=== PATIENT | female | born 1965 | race Caucasian/White ===

== ENCOUNTER 2016-07-29 09:39 | Day surgery (SDC) | payer OTHER ==
[2016-07-29] VITALS (17 sets, daily range): BP systolic 110–179; BP diastolic 55–84; PULSE 68–98; RESP 12–18; Ht 156.2 cm; Wt 75.5 kg
[~2016-07-29] VITALS: Ht 156.2 cm; Wt 75.5 kg
[~2016-07-29 09:39] MED LIST: LIDOCAINE 2% (SDV) 5 ML INJ ONE
[2016-07-29] MEDS ORDERED: CEFAZOLIN 2 GM/50 ML (PMX) 50 ML IVPB SCH (10:00)
[2016-07-29] MEDS ORDERED: SOD CHLORIDE 0.9% 1,000 ML IV SCH (10:00)
--- NOTE | 2016-07-29 10:37 | RADRPT ---
PROCEDURE: Chest Radiograph. CLINICAL INDICATION: Preop. TECHNIQUE: Single frontal chest radiograph. COMPARISON: None available FINDINGS: The patient is moderately rotated. The cardiomediastinal silhouette is grossly within normal limits . No infiltrate or effusion is seen. The bones are intact. IMPRESSION: 1. No evidence of acute cardiopulmonary disease. RPTAT: AA .Amos Hernandez MD, MD Date Time Electronically viewed and signed by .Amos Hernandez MD, MD on 07/29/2016 10:37 .B/
[2016-07-29 11:24] LABS: ADD SCAN DIFF NO
[2016-07-29 11:31] LABS: BASOPHILS % 0.3 % (0.0-2.0); EOSINOPHILS # 0.1 10^3/ul (0.0-0.5); EOSINOPHILS % 1.2 % (0.0-7.0); HEMATOCRIT 40.2 % (37.0-47.0); HEMOGLOBIN 13.2 g/dl (12.0-16.0); LYMPHOCYTES # 2.1 10^3/ul (0.8-2.9); LYMPHOCYTES % 36.5 % (15.0-51.0); MEAN CORPUSCULAR HEMOGLOBIN 29.6 pg (29.0-33.0); MEAN CORPUSCULAR HGB CONC 32.8 g/dl (32.0-37.0); MEAN CORPUSCULAR VOLUME 90.1 fl (82.0-101.0); MEAN PLATELET VOLUME 10.1 fl (7.4-10.4); MONOCYTE # 0.4 10^3/ul (0.3-0.9); MONOCYTES % 7.2 % (0.0-11.0); NEUTROPHIL # 3.2 10^3/ul (1.6-7.5); NEUTROPHILS % 54.6 % (39.0-77.0); PLATELET COUNT 229 10^3/UL (140-415); RED BLOOD COUNT 4.46 10^6/ul (4.20-5.40); RED CELL DISTRIBUTION WIDTH 12.8 % (11.5-14.5); WHITE BLOOD COUNT 5.9 10^3/ul (4.8-10.8)
--- NOTE | 2016-07-29 11:33 | RADRPT ---
Vent Rate: 63 bpm RR Interval: 0 msec IN Interval: 164 msec QRS Duration: 86 msec QT Interval: 422 msec QTC Interval: 431 msec P-R-T Mars: 57 - 91 - 73 degrees Normal sinus rhythm Rightward axis Borderline ECG Electronically Signed By: Noel Vance [id number]
[2016-07-29 11:46] LABS: ALBUMIN 4.2 g/dl (3.3-4.9); INR 1.02; PROTIME 13.4 Sec (12.2-14.2)
[2016-07-29 11:47] LABS: PARTIAL THROMBOPLASTIN TIME 30.9 Sec (25.0-35.0)
[2016-07-29 11:49] LABS: ALBUMIN/GLOBULIN RATIO 1.1; BILIRUBIN,INDIRECT 0.3 mg/dl (0-1.1); BILIRUBIN,TOTAL 0.3 mg/dl (0.2-1.3)
[2016-07-29 12:05] LABS: CALCIUM 9.4 mg/dl (8.4-10.2); CREATININE 0.63 mg/dl (0.44-1.00); POTASSIUM 4.2 mmol/L (3.5-5.1)
[2016-07-29] MEDS ORDERED: GLYCOPYRROLATE 0.4 MG INJ ONE (13:02)
[2016-07-29] MEDS ORDERED: DEXAMETHASONE 4 MG/ML 1 ML INJ ONE (13:02)
[2016-07-29] MEDS ORDERED: NEOSTIGMINE 3 MG/3 ML SYRINGE ONE (13:02)
[2016-07-29] MEDS ORDERED: ONDANSETRON 4 MG INJ ONE (13:02)
[2016-07-29] MEDS ORDERED: CEFAZOLIN 1 GM INJ ONE (13:02)
[2016-07-29] MEDS ORDERED: FENTAnyl 50 MCG/ML VIAL ONE ×2 (13:02→13:32)
[2016-07-29] MEDS ORDERED: ROCURONIUM 50 MG INJ ONE (13:02)
[2016-07-29] MEDS ORDERED: PROPOFOL 20 ML ONE (13:02)
[2016-07-29] MEDS ORDERED: MIDAZOLAM 1 MG/ML 2 ML INJ ONE (13:02)
[2016-07-29] MEDS ORDERED: hydrALAzine 20 MG INJ ONE (13:19)
[2016-07-29] MEDS ORDERED: FENTAnyl 50 MCG/ML VIAL IV PRN ×3 (14:00)
[2016-07-29] MEDS ORDERED: DIPHENHYDRAMINE 50 MG INJ IV PRN (14:00)
[2016-07-29] MEDS ORDERED: MEPERIDINE 25 MG INJ IV PRN (14:00)
[2016-07-29] MEDS ORDERED: hydrALAzine 20 MG INJ IV PRN (14:00)
[2016-07-29] MEDS ORDERED: ONDANSETRON 4 MG INJ IV PRN (14:00)
[2016-07-29] MEDS ORDERED: LABETALOL HCL 20MG INJ IV PRN (14:00)
[2016-07-29] MEDS ORDERED: EPHEDrine SULFATE 50 MG/5 ML SYG IV PRN (14:00)
[2016-07-29] MEDS ORDERED: HYDROmorphONE (0.2 MG/ML) 10ML SYG IV PRN ×3 (14:00)
[2016-07-29] MEDS ORDERED: MIDAZOLAM 1 MG/ML 2 ML INJ IV PRN (14:00)
[2016-07-29] MEDS ORDERED: TRIMETHOBENZAMIDE 100 MG/ML VIAL IM PRN (14:00)
[2016-07-29] MEDS ORDERED: SUGAMMADEX SODIUM 200 MG/2 ML VIAL IV ONE (14:07)
[2016-07-29] MEDS ORDERED: METOCLOPRAMIDE 10 MG INJ ONE (14:07)
--- NOTE | 2016-07-29 14:49 | OPR ---
DATE OF OPERATION: 07/29/2016 PREOPERATIVE DIAGNOSIS: Large left breast cancer. POSTOPERATIVE DIAGNOSIS: Large left breast cancer. OPERATION PERFORMED: Resection of large left breast cancer with en bloc axillary dissection. ANESTHESIA: General. ANESTHESIOLOGIST: Dr. Porter SURGEON: Campbell De Dios MD COUNTRY PRINTER APPRENTICE: Dr. Palafox INDICATIONS FOR PROCEDURE: The patient is a 50-year-old female who presented with a large mass in t he upper outer quadrant of her breast, very near the border of the axilla. Radiographic workup and biopsy revealed a large invasive cancer. She also had biopsy of axillary nodes which were positive for metastatic disease. The patient was counseled on surgical options including modified radical ma stectomy or breast conservation surgery. She wished to attempt breast conservation surgery, underst anding that she might require a completion mastectomy at a later date. She consented and was schedu led for surgery. DESCRIPTION OF PROCEDURE: The patient was brought to the operating theater where she was placed und er general endotracheal tube anesthesia. The left breast and axillary region was prepped and draped in the usual sterile fashion. A curvilinear incision was made directly over the mass just at the b order of the axilla for a length of approximately 8 cm. Subcutaneous tissue was dissected with caut ben. The skin edges were elevated with skin hooks. Wide dissection took place anteriorly down to t he pectoralis major muscle, taking great care to ensure that dissection proceeded with a clear akiko n medially. Then dissection proceeded posteriorly until the latissimus dorsi muscle was identified throughout its course. Additional inferior dissection took place until the whole mass could be palp ated. The mass was dissected off of the pectoralis major muscle and at the border of the pectoralis major muscle, the pectoralis minor muscle was identified. The clavipectoral fascia was then incise d, and with blunt dissection along the chest wall, the long thoracic nerve was identified. More sup eriorly, the axillary vein was identified and dissected from medial to lateral. In its usual school examiner ior lateral location, the thoracodorsal neurovascular bundle was identified and dissected out throug hout its course and kept out of harm's way. There were at least 2 large lymph nodes with obvious me tastatic disease consistent with the preoperative diagnosis. Level 1 and level 2 nodes between the large thoracic nerve and thoracodorsal nerve were then meticulously harvested using the LigaSure dev ice, and the final connective tissue attachments to the latissimus dorsi muscle were then transected with cautery. The specimen was removed and oriented. Attending pathologist, Dr. Claros, was arceo d into the room. Dr. De Dios explained the orientation to him, and the specimen was then sent for per manent pathologic analysis. Upon palpation of high level 2 area in the axilla, there were some cally tional suspicious lymph nodes. They were removed separately using the LigaSure device and sent sepa rately for pathologic analysis. The wound was then irrigated. Minimal bleeding was controlled with cautery. Two #10 Serbian Joaquin-Perry drains were then brought through the left mid axillary line, cut to size, and laid within the axilla. They were secured in place with 2-0 nylon sutures. The s kin was then closed with a deep dermal layer of 4-0 Vicryl in interrupted fashion, followed by final skin approximation with 5-0 PDS in subcuticular fashion. Benzoin and Steri-Strips were then applie d. The patient tolerated the procedure well. The estimated blood loss was 40 mL. There were no co mplications. The patient was transported in stable condition to the recovery room where circumferen tial compression dressing was applied. Dictated By: CAMPBELL GARCIA/NAIDA Conf#: [id number] DID#: [id number]
== END 2016-07-29 17:06 | disposition home or self-care (01) ==
LOC: SDS 09:39
PROVIDERS: ATTEND Surgery Surgical Oncology
DX: C50.912 Malignant neoplasm of unspecified site of left female breast (principal); I10 Essential (primary) hypertension; E78.00 Pure hypercholesterolemia, unspecified
CPT/HCPCS: 19260; 71010; 80053; 84703; 85025; 85610; 85730; 88307; 93005; J0360; J0690; J1100; J2250; J2405; J2765; J3010; Z7512; Z7610; J2710

== ENCOUNTER 2016-09-14 07:22 | Day surgery (SDC) | payer OTHER ==
[~2016-09-14] VITALS: Ht 156.2 cm; Wt 76.0 kg
[2016-09-14] VITALS (21 sets, daily range): BP systolic 103–138; BP diastolic 61–77; PULSE 63–76; RESP 13–22; Ht 156.2 cm; Wt 76.0 kg
[2016-09-14] MEDS ORDERED: CEFAZOLIN 1 GM/50 ML (PMX) 50 ML IVPB ONE ×2 (08:00→10:05)
[2016-09-14] MEDS ORDERED: POLYMYXIN/BACITRACIN 1L IRRIG IRR ONE (08:00)
[2016-09-14] MEDS ORDERED: SOD CHLORIDE 0.9% 1,000 ML IV SCH (08:00)
[2016-09-14] MEDS ORDERED: HEPARIN 1000 UNITS/ML 10 ML INJ ONE (08:29)
[2016-09-14] MEDS ORDERED: LIDOCAINE 2%/EPI 30 ML INJ ONE (08:29)
[2016-09-14] MEDS ORDERED: SOD CHLORIDE 0.9% 500 ML ONE (08:29)
[2016-09-14] MEDS ORDERED: MIDAZOLAM 1 MG/ML 2 ML INJ ONE (10:05)
[2016-09-14] MEDS ORDERED: FENTAnyl 50 MCG/ML VIAL ONE (10:06)
[2016-09-14] MEDS ORDERED: HYDROCODONE/APAP (5/325) TAB PO PRN (11:00)
--- NOTE | 2016-09-14 13:05 | RADRPT ---
PROCEDURE: FLUOROSCOPIC AND ULTRASONOGRAPHIC-GUIDED PLACEMENT OF RIGHT CHEST PORT. CLINICAL INDICATION: History of left breast cancer. Venous access for chemotherapy. TECHNIQUE: INTRAPROCEDURE MEDICATIONS: PB antibiotic solution 40 cc applied topically. 1 gram Ancef intravenous ly, intra-op. IV Versed and Fentanyl per protocol. Informed consent was obtained. The procedure, risks, benefits, complications and alternatives were explained to the patient. Risks including bleeding, infection, and pneumothorax were explained. The patient understood and was willing to proceed. A procedural pause was performed. The patient's name , date of , and procedure to be performed were verified. The central line was inserted with al l elements of maximal sterile barrier technique. All of the following were used: head covering, faci al mask, sterile gown, sterile gloves, a large sterile sheet, hand hygiene, and 2% chlorhexidine fo r cutaneous antisepsis. The right neck and anterior/superior chest wall were prepped and draped in usual sterile fashion. Limited sonography of the right neck was then performed. Noted is a patent right internal jugular ve in. Following the local injection of 1% lidocaine, the right internal jugular vein was punctured under s onographic guidance with a 20-gauge needle through which a 0.018 inch floppy tip guidewire was advan callie into the superior vena cava with fluoroscopic guidance. The tract was dilated to 5 Libyan and the wire was then replaced with a 0.035 in Amplatz guidewire. Serial dilatation was then performed and a 7 Libyan peel away sheath was introduced. A site just inferior to the clavicle in the superior anterior right chest wall was localized. One pe rcent lidocaine was used as local anesthesia. A transverse 2.5 cm incision was made utilizing a 15 b lade scalpel. Utilizing blunt dissection a subcutaneous pocket was created inferior to the incision. The cavity was flushed with approximately 40 cc of PB antibiotic solution. The catheter was tunneled underneath the skin from the newly created pocket to the puncture site in the neck. The central line catheter was pulled through the tract. The catheter was then advanced thr ough the sheath until the tip was positioned in the right atrium. The peel-away sheath was removed. The catheter was flushed and clamped. The 8 Libyan catheter was then connected to the Angiodynamics power port. The port was then placed i nto the pocket. Prior to closing the instrument and sponge count was verified and was correct. The s ubcutaneous tissue was closed with 3-0 Vicryl interrupted suture. The skin at the site of the pocket and in the neck was closed with 4-0 Vicryl suture in a running subcuticular technique. The port was flushed with 1500 units of heparin in 1.5 cc utilizing a Curtis needle. The needle was removed. A dr essing was applied. The patient tolerated procedure well. COMPARISON: None. FINDINGS: Ultrasound images were recorded and stored in the patient's medical record. Final radiographic images demonstrate the tip of the catheter in the upper right atrium. A total of 0.1 minutes of fluoroscopy time was used. 4 images were obtained with the image intensifier. The ultrasound images demonstrate the needle entering the internal jugular vein. IMPRESSION: 1. Successful ultrasonographic and fluoroscopic guided placement of right chest power port. RPTAT: QQ .Sanjiv Wells MD, MD Date Time Electronically viewed and signed by .Sanjiv Wells MD, on 09/14/2016 13:05 .R/
--- NOTE | 2016-09-14 21:31 | RADRPT ---
Echocardiogram Report Patient Name: SUZETTE HILL Gender: Female Date: 1965 Study Date: 14-Sep-2016 Snagger: Fady [facility] Location: EKG Ref. Physician: CANDELARIA HARDY Quality: Adequate Procedures: Transthoracic echocardiogram with complete 2D, M-Mode, and doppler examination. Indications: Pre-op. 2D/M Mode Doppler Measurement Value Normal Ranges Measurement Value Normal Ranges LVIDd 2D 4.5 3.5 - 5.6 cm LVOT Peak Andres 0.8 m/sec LVIDs 2D 3.1 2.1 - 4.1 cm LVOT Peak PG 3.0 mmHg FS 2D 31.2 % MV E Peak Andres 1.1 m/sec LVPWd 2D 1.0 0.6 - 1.1 cm MV A Peak Andres 0.8 m/sec IVSd 2D 1.0 0.6 - 1.1 cm MV E/A 1.4 IVS/LVPW 2D 1.0 MV Decel Time 236 msec AoR Diam 2D 2.5 2.0 - 3.7 cm MV E/A 1.4 LA/Ao 2D 1 0 - 1 EDV 2D 88.7 cm3 ESV 2D 28.9 cm3 LA Dimen 2D 3.6 2.3 - 4.0 cm Findings Left Ventricle: Normal left ventricular systolic function. Normal left ventricular cavity size. Normal left ventricular wall thickness. Ejection fraction is visually estimated at 55 %. Right Ventricle: Normal right ventricular size. Normal right ventricular systolic function. Left Atrium: The left atrium is normal in size. Right Atrium: The right atrium is normal in size. Mitral Valve: Mild mitral leaflet calcification. Mild mitral annular calcification. Trace mitral regurgitation. Aortic Valve: Normal appearance of the aortic valve. No significant aortic stenosis or insufficiency. Tricuspid Valve: Normal appearance and function of the tricuspid valve with trace physiologic regurgitation. Pericardium: Normal pericardium with no significant pericardial effusion. Aorta: Normal aortic root. IVC: Normal size and no respiratory collapse consistent with elevated right atrial pressure. Conclusions Normal left ventricular systolic function. Normal left ventricular cavity size. Normal left ventricular wall thickness. Ejection fraction is visually estimated at 55 %. Normal right ventricular size. Normal right ventricular systolic function. The left atrium is normal in size. The right atrium is normal in size. No significant valvular stenosis or regurgitation seen. Normal pericardium with no significant pericardial effusion. Electronically Signed By: Noel Vance 14-Sep-2016 21:29:52 -0700 Patient Name: SUZETTE HILL Study Date: 14-Sep-[id number]
--- NOTE | 2016-09-15 11:00 | RADRPT ---
PROCEDURE: Ultrasound guidance for placement of needle in right internal jugular vein. CLINICAL INDICATION: Venous access. TECHNIQUE: Prior to the procedure, informed consent was obtained. Risks including bleeding, infection, and pneu mothorax were explained to the patient. The patient understood and was willing to proceed. A procedu ral pause was performed. The patient's name, date of , and procedure to be performed were verif ied. The central line was inserted with all elements of maximal sterile barrier technique. All of th e following were used: head covering, facial mask, sterile gown, sterile gloves, a large sterile she et, hand hygiene, and 2% chlorhexidine for cutaneous antisepsis. The right neck and anterior/super ior chest wall was prepped and draped in usual sterile fashion. Limited sonography of the right neck was then performed. Noted is a patent right internal jugular ve in. Ultrasound images were recorded and stored in the patient's medical record. Following the local injection of Xylocaine, the right internal jugular vein was punctured under sono graphic guidance with a 20-gauge needle through which a 0.018 inch floppy tip guidewire was advanced into the superior vena cava. The patient tolerated the procedure well. The remainder of the proce dure was performed and dictated under separate cover. COMPARISON: None. FINDINGS: The ultrasound images demonstrate a patent right internal jugular vein. The subsequent images demon strate the needle entering the right internal jugular vein. IMPRESSION: 1. Ultrasound guidance for a needle placement in right internal jugular vein. RPTAT: QQ .Sanjiv Wells MD, Date Time Electronically viewed and signed by .Sanjiv Wells MD, on 09/15/2016 10:59 .R/
== END 2016-09-14 13:00 | disposition home or self-care (01) ==
LOC: SDS 07:22
PROVIDERS: ATTEND Internal Medicine Hematology & Oncology
DX: C50.912 Malignant neoplasm of unspecified site of left female breast (principal)
CPT/HCPCS: 36561; 76942; 93306; C1788; J0690; J1644; J2250; J3010; J7040; Z7610